=== PATIENT | female | born 1990 | race Two or more races ===

== ENCOUNTER 2022-03-23 18:06 | Observation (INO) | payer SELFPAY ==
[2022-03-23] MEDS ORDERED: Ketorolac 30 MG/ML SDV IVPUSH ONE (18:28)
[2022-03-23] MEDS ORDERED: diphenhydrAMINE 50 MG/ML SDV IVPUSH ONE (18:28)
[2022-03-23] MEDS ORDERED: Metoclopramide 10 MG/2 ML SDV IVPUSH ONE (18:28)
[2022-03-23] MEDS ORDERED: Sodium Chloride 0.9% 1,000 ML IV ONE ×2 (18:28→19:36)
[2022-03-23] MEDS ORDERED: Ondansetron 4 MG/2 ML SDV IVPUSH ONE (18:28)
[2022-03-23 19:14] LABS: BLOOD UREA NITROGEN,BUN 17 mg/dL (7.0-18.0); CARBON DIOXIDE,CO2 17.4 mmol/L (21.0-32.0); CHLORIDE,CL 102 mmol/L (98-107); GLUCOSE RANDOM 130 mg/dL (74-106); LIPASE 32 U/L (73-393); POTASSIUM,K 3.6 mmol/L (3.5-5.1); SODIUM,NA 136 mmol/L (136-145)
[2022-03-23] MEDS ORDERED: Promethazine 25 MG/ML SDV IM ONE (19:37)
[2022-03-23] MEDS ORDERED: LORazepam 2 MG/ML SDV IVPUSH ONE (20:31)
[2022-03-23] MEDS ORDERED: Iopamidol 755 MG/ML 500 ML Multipack Bottle IVPUSH STA (22:17)
[2022-03-23] MEDS ORDERED: Haloperidol Lactate 5 MG/ML SDV IM STA (23:56)
[2022-03-24] MEDS ORDERED: diphenhydrAMINE 50 MG/ML SDV IVPUSH ONE (00:01)
[2022-03-24] MEDS ORDERED: Albuterol/Ipratropium 3.0-0.5 MG/3 ML Neb Soln NEB PRN (00:48)
[2022-03-24] MEDS ORDERED: Haloperidol Lactate 5 MG/ML SDV IM PRN (00:50)
[2022-03-24] MEDS: Lactated Ringers 1,000 ML IV SCH ×2 (01:08→10:33)
[2022-03-24] MEDS: Promethazine 25 MG/ML SDV IM PRN ×3 (03:35→12:11)
[2022-03-24] MEDS: Ketorolac 30 MG/ML SDV IVPUSH PRN ×2 (03:35→13:36)
[2022-03-24 06:52] LABS: BLOOD UREA NITROGEN,BUN 16 mg/dL (7.0-18.0); CARBON DIOXIDE,CO2 21.4 mmol/L (21.0-32.0); CHLORIDE,CL 104 mmol/L (98-107); GLUCOSE RANDOM 127 mg/dL (74-106); POTASSIUM,K 3.2 mmol/L (3.5-5.1); SODIUM,NA 139 mmol/L (136-145)
[2022-03-24] MEDS ORDERED: Pantoprazole 40 MG in Sodium Chloride 0.9% 10 ML IVPUSH SCH (09:00)
== END 2022-03-24 17:30 | disposition home or self-care (01) ==
LOC: MW.ED 18:06 → MW.MS 03-24 00:25
PROVIDERS: ADMIT Student in an Organized Health Care Education/Training Program; ATTEND Student in an Organized Health Care Education/Training Program
DX: G43.009 Migraine without aura, not intractable, without status migrainosus (principal); F41.8 Other specified anxiety disorders; Z20.822 Contact with and (suspected) exposure to COVID-19; Z88.2 Allergy status to sulfonamides; Z88.8 Allergy status to other drugs, medicaments and biological substances; Z79.899 Other long term (current) drug therapy
CPT/HCPCS: 36415; 74177; 80053; 80305; 81001; 83690; 83735; 84100; 84703; 85025; 87635; 96361; 96372; 96374; 96375; 96376; 99285; C9113; J1200; J1630; J1885; J2060; J2405; J2550; J2765; J3490; J7030; J7120; Q9967; U0002

== ENCOUNTER 2022-06-04 09:50 | Emergency (ER) | payer MEDICAID ==
[2022-06-04] MEDS ORDERED: Sodium Chloride 0.9% 1,000 ML IV ONE (10:04)
[2022-06-04] MEDS ORDERED: Ondansetron 4 MG/2 ML SDV IVPUSH ONE (10:04)
[2022-06-04] MEDS ORDERED: Promethazine 25 MG/ML SDV IM ONE (10:36)
[2022-06-04 11:06] LABS: CARBON DIOXIDE,CO2 21.3 mmol/L (21.0-32.0); POTASSIUM,K 3.2 mmol/L (3.5-5.1)
== END 2022-06-04 12:22 | disposition home or self-care (01) ==
LOC: MW.ED 09:50
DX: K52.9 Noninfective gastroenteritis and colitis, unspecified (principal); Z88.1 Allergy status to other antibiotic agents; Z88.2 Allergy status to sulfonamides; Z20.822 Contact with and (suspected) exposure to COVID-19
CPT/HCPCS: 36415; 80053; 83690; 85025; 87635; 96361; 96372; 96374; 99284; J2405; J2550; J7030; 99283; U0002

== ENCOUNTER 2022-06-05 12:57 | Emergency (ER) | payer MEDICAID ==
[2022-06-05] MEDS ORDERED: Promethazine 25 MG/ML SDV IM ONE (13:59)
[2022-06-05] MEDS ORDERED: Famotidine 20 MG/2 ML SDV IVPUSH ONE (14:08)
[2022-06-05 14:16] LABS: CARBON DIOXIDE,CO2 25.5 mmol/L (21.0-32.0); POTASSIUM,K 3.2 mmol/L (3.5-5.1)
[2022-06-05] MEDS ORDERED: Lactated Ringers 1,000 ML IV ONE (14:24)
[2022-06-05] MEDS ORDERED: Ketorolac 30 MG/ML SDV IVPUSH ONE (14:25)
[2022-06-05] MEDS ORDERED: diphenhydrAMINE 50 MG/ML SDV IVPUSH ONE (14:25)
[2022-06-05] MEDS ORDERED: Metoclopramide 10 MG/2 ML SDV IVPUSH ONE (14:25)
[2022-06-05] MEDS ORDERED: Potassium Chloride 20 MEQ Tab.ER PO ONE (14:31)
== END 2022-06-05 15:25 | disposition home or self-care (01) ==
LOC: MW.ED 12:57
DX: G43.809 Other migraine, not intractable, without status migrainosus (principal); R10.9 Unspecified abdominal pain; E87.6 Hypokalemia; Z88.1 Allergy status to other antibiotic agents; Z88.2 Allergy status to sulfonamides
CPT/HCPCS: 36415; 80048; 84703; 96361; 96372; 96374; 96375; 99284; A9270; J1200; J1885; J2550; J2765; J3490; J7120; 99283